=== PATIENT | female | born 1995 | race Caucasian/White ===

== ENCOUNTER 2020-10-16 08:12 | Inpatient (IN) | payer OTHER ==
[2020-10-16 09:54] VITALS: BMI 27.0
[2020-10-16 10:22] LABS: BASO % 0.3 % (0-2.0); EOS % 0.7 % (0-4.5); LYMPH % 29.4 % (8-40); MCH 30.7 pg (25.7-33.7); MCHC 34.2 g/dl (32.0-36.0); MEAN CELL VOLUME 89.8 fl (80-96); MEAN PLT VOLUME 9.6 fl (7.5-11.1); MONO % 7.6 % (3.8-10.2); PLATELET COUNT 212 10^3/uL (134-434); RDW 14.2 % (11.6-15.6); WHITE BLOOD COUNT 5.7 K/mm3 (4.0-10.0)
[2020-10-16 10:34] LABS: INR 0.93 (0.83-1.09); PROTHROMBIN TIME (PATIENT) 11.3 SEC (9.7-13.0)
[2020-10-16 10:37] LABS: ACTIVATED PTT 27.1 SECONDS (25.2-36.5)
[2020-10-16 10:41] LABS: BLOOD UREA NITROGEN 12.6 mg/dL (7-18); CALCIUM 8.9 mg/dL (8.5-10.1)
[2020-10-16 10:45] LABS: CREATININE 0.6 mg/dL (0.55-1.3)
[2020-10-16] MEDS ORDERED: DINOPROSTONE 10 MG VAGINAL SUPPOSITORY VG ONE (11:00)
[2020-10-16] MEDS: ELECTROLYTE-148 SOLN 1,000 ML IV SCH ×2 (11:30→16:22)
[2020-10-16 13:40] LABS: HIV INTERPRETATION NEGATIVE (NEGATIVE)
[2020-10-16] MEDS ORDERED: OXYTOCIN 20 UNITS in 0.9% NS 20 UNIT/1,000 ML INFUS.BAG IV ONE (16:08)
[2020-10-16] MEDS ORDERED: PROMETHAZINE HCL 25 MG/1 ML VIAL ONE (22:57)
[2020-10-16] MEDS ORDERED: BUTORPHANOL TARTRATE 2 MG/ML VIAL ONE (22:57)
[2020-10-16] MEDS ORDERED: BUTORPHANOL TARTRATE 2 MG/ML VIAL IVPB ONE (23:00)
[2020-10-16] MEDS ORDERED: PROMETHAZINE HCL 25 MG/1 ML VIAL IVPB ONE (23:00)
[2020-10-17] MEDS: ELECTROLYTE-148 SOLN 1,000 ML IV SCH ×2 (07:20→10:45)
[2020-10-17] MEDS ORDERED: OXYTOCIN 30 UNITS in 0.9% NS 30 UNIT/500 ML INFUS.BAG IVPB ONE (08:20)
[2020-10-17] MEDS ORDERED: OXYTOCIN 30 UNITS in 0.9% NS 30 UNIT/500 ML INFUS.BAG IVPB SCH (08:30)
[2020-10-17] MEDS ORDERED: LIDOCAINE HCL 1% PRESERVATIVE FREE - 30ML VIAL ONE (11:52)
[2020-10-17] MEDS ORDERED: OXYTOCIN 20 UNITS in 0.9% NS 20 UNIT/1,000 ML INFUS.BAG IV ONE ×2 (11:52→18:03)
[2020-10-17 15:10] LABS: CORD BASE EXCESS -3.1 mmol/L (0-2); CORD PCO2 39.7 mmHg (30-78); CORD pH 7.361 (7.14-7.44)
[2020-10-17] MEDS ORDERED: WITCH HAZEL 50% (TUCKS) 40 PAD/JAR PAD TP PRN (15:38)
[2020-10-17] MEDS ORDERED: BENZOCAINE 20% 57 GM BOTTLE TP PRN (15:38)
[2020-10-17] MEDS ORDERED: ACETAMINOPHEN 325 MG TABLET (FP) PO PRN (15:38)
[2020-10-17] MEDS ORDERED: BENZOCAINE 28 GM HEMORRHOIDAL OINTMENT TP PRN (15:38)
[2020-10-17] MEDS ORDERED: METHYLERGONOVINE MALEATE 0.2 MG/1 ML AMP IM PRN (15:38)
[2020-10-17] MEDS ORDERED: OXYTOCIN 20 UNITS in 0.9% NS 20 UNIT/1,000 ML INFUS.BAG IV SCH (15:45)
[2020-10-17] MEDS ORDERED: ACETAMINOPHEN 325 MG TABLET (FP) ONE (16:04)
[2020-10-17] MEDS ORDERED: IBUPROFEN 600 MG TABLET (FP) PO ONE (16:04)
[2020-10-17] MEDS: IBUPROFEN 600 MG TABLET (FP) PO PRN (16:05)
[2020-10-17] MEDS ORDERED: SODIUM CHLORIDE 1,000 ML IV SCH (17:30)
[2020-10-17] MEDS ORDERED: FERROUS SO4 325 MG TABLET (FP) PO SCH (17:30)
[2020-10-17 17:46] LABS: INR 0.94 (0.83-1.09); PROTHROMBIN TIME (PATIENT) 11.6 SEC (9.7-13.0)
[2020-10-17 17:48] LABS: ACTIVATED PTT 26.8 SECONDS (25.2-36.5); BASO % 0.2 % (0-2.0); HEMATOCRIT 28.1 % (32.4-45.2); HEMOGLOBIN 9.5 GM/dL (10.7-15.3); LYMPH % 5.6 % (8-40); MCH 30.5 pg (25.7-33.7); MCHC 33.9 g/dl (32.0-36.0); MEAN CELL VOLUME 89.9 fl (80-96); MEAN PLT VOLUME 9.4 fl (7.5-11.1); MONO % 5.8 % (3.8-10.2); NEUT % 88.4 % (42.8-82.8); PLATELET COUNT 199 10^3/uL (134-434); RBC 3.12 M/mm3 (3.60-5.2); RDW 13.9 % (11.6-15.6)
[2020-10-17 17:52] LABS: CALCIUM 8.1 mg/dL (8.5-10.1)
[2020-10-17 17:53] LABS: ALBUMIN 2.2 g/dl (3.4-5.0); BLOOD UREA NITROGEN 10.8 mg/dL (7-18); MAGNESIUM 1.7 mg/dL (1.8-2.4)
[2020-10-17 17:56] LABS: CREATININE 0.6 mg/dL (0.55-1.3); PHOSPHOROUS 3.6 mg/dL (2.5-4.9)
[2020-10-17 17:57] LABS: BILIRUBIN,TOTAL 0.5 mg/dL (0.2-1)
[2020-10-17 17:58] LABS: TOT PROT 5.4 g/dl (6.4-8.2)
[2020-10-17] MEDS ORDERED: MAGNESIUM SULF 50% (8.12 MEQ/2 ML-1 GM VIAL) IVPB ONE (18:56)
[2020-10-17] MEDS ORDERED: MAGNESIUM SULFATE IN WATER 2 GM/50 ML IVPB IVPB ONE (19:30)
[2020-10-17] MEDS: SENNOSIDES/DOCUSATE COMBO (SENNA PLUS) TABLET (UD) PO PRN (22:29)
[2020-10-17] MEDS: FERROUS SO4 325 MG TABLET (FP) PO SCH (22:29)
[2020-10-18 08:41] LABS: BASO % 0.3 % (0-2.0); EOS % 0.6 % (0-4.5); HEMATOCRIT 24.3 % (32.4-45.2); HEMOGLOBIN 8.2 GM/dL (10.7-15.3); LYMPH % 24.5 % (8-40); MCH 30.7 pg (25.7-33.7); MCHC 33.8 g/dl (32.0-36.0); MEAN PLT VOLUME 9.4 fl (7.5-11.1); MONO % 7.6 % (3.8-10.2); PLATELET COUNT 189 10^3/uL (134-434); RBC 2.68 M/mm3 (3.60-5.2); RDW 14.3 % (11.6-15.6)
[2020-10-18] MEDS: PRENATAL VITAMINS W/ FOLIC ACID TABLET (FP) PO SCH (10:14)
[2020-10-18] MEDS: DOCUSATE SODIUM 100 MG CAPSULE (FP) PO SCH (10:14)
[2020-10-18] MEDS: FERROUS SO4 325 MG TABLET (FP) PO SCH ×2 (10:15→21:57)
[2020-10-18] MEDS: IBUPROFEN 600 MG TABLET (FP) PO PRN (21:56)
[2020-10-18] MEDS: SENNOSIDES/DOCUSATE COMBO (SENNA PLUS) TABLET (UD) PO PRN (21:57)
[2020-10-19] MEDS: DOCUSATE SODIUM 100 MG CAPSULE (FP) PO SCH (09:56)
[2020-10-19] MEDS: FERROUS SO4 325 MG TABLET (FP) PO SCH (09:57)
[2020-10-19] MEDS: PRENATAL VITAMINS W/ FOLIC ACID TABLET (FP) PO SCH (09:57)
[2020-10-19 11:28] VITALS: BP 110/62; PULSE 88; TEMP 98.2
== END 2020-10-19 12:55 | disposition home or self-care (01) | DRG 560 ==
LOC: JLDR 08:12 → J3W 10-17 19:45
PROVIDERS: ADMIT Obstetrics & Gynecology; ATTEND Obstetrics & Gynecology
PROC: 3E0P7VZ Introduction of Hormone into Female Reproductive, Via Natural or Artificial Opening (ICD-10-PCS; 2020-10-16)
PROC: 10907ZC Drainage of Amniotic Fluid, Therapeutic from Products of Conception, Via Natural or Artificial Opening (ICD-10-PCS; 2020-10-16)
PROC: 10E0XZZ Delivery of Products of Conception, External Approach (ICD-10-PCS; principal; 2020-10-17)
DX: O80 Encounter for full-term uncomplicated delivery (principal); Z3A.40 40 weeks gestation of pregnancy; Z37.0 Single live birth; O90.89 Other complications of the puerperium, not elsewhere classified; I95.1 Orthostatic hypotension
CPT/HCPCS: 36415; 36600; 59409; 80048; 80053; 82803; 82962; 83735; 84100; 85025; 85610; 85730; 86780; 86850; 86900; 86901; 87389; C9803; U0003; U0005